=== PATIENT | male | born 1955 | race Caucasian/White ===

== ENCOUNTER 2017-11-18 12:48 | Day surgery (SDC) | payer BC ==
[2017-11-18] MEDS ORDERED: LIDOCAINE 2% MDV (20MG/ML) 20ML VIAL IV ONE (12:49)
[2017-11-18] MEDS ORDERED: PROPOFOL 10 MG/ML VIAL IV ONE (12:49)
[2017-11-18] MEDS ORDERED: FENTANYL PF 100MCG/2ML VIAL IV ONE (12:49)
[2017-11-18] MEDS ORDERED: MIDAZOLAM HCL 2MG/2ML VIAL IV ONE (12:49)
--- NOTE | 2017-11-19 12:50 | Operative Note ---
DATE OF SURGERY: 11/18/2017 OPERATION: COLONOSCOPY with cold snare polypectomy x2. PREOPERATIVE DIAGNOSIS: Colon cancer screening, average risk. POSTOPERATIVE DIAGNOSES: 1. Ascending colon polyp. 2. Transverse colon polyp. 3. Sigmoid diverticulosis. ESTIMATED BLOOD LOSS: Minimum. SPECIMENS: Ascending colon polyp, transverse colon polyp. PREPARATION QUALITY: Good. COMPLICATIONS: None apparent. PROCEDURE: After informed consent was obtained from the patient, he was placed in the left lateral decubitus position in the endoscopy suite, sedated and monitored by the department of anesthesia. Digital rectal exam was unremarkable. A well-lubricated [id number] colonoscope was inserted into the rectum and advanced to the cecum. Preparation quality was good. The cecum, appendiceal orifice, and ileocecal valve were unremarkable. In the ascending colon there was a 6 mm sessile polyp removed with a cold snare. Minimal bleeding was noted at the site. The polyp was retrieved without difficulty. The remainder of the ascending colon was unrevealing. In the transverse colon there was a 4 mm polyp removed with a cold snare. Minimal bleeding noted at the site. The polyp was retrieved. The remainder of the transverse colon and descending colon were unrevealing. The sigmoid colon demonstrated [id number] diverticular changes. The rectum was unremarkable in forward and in J-turn views. The endoscope was straightened, the rectal ampulla deflated, and the endoscope was removed. RECOMMENDATIONS: The patient should follow a high-fiber diet. He will require repeat exam in 3-5 years pending tissue histology. As always, thank you for allowing me to participate in the healthcare of your patients. CC: DO ASAD Brooks
== END 2017-11-18 14:22 | disposition home or self-care (01) ==
LOC: HOP 12:48
PROVIDERS: ATTEND Internal Medicine Gastroenterology
DX: Z12.11 Encounter for screening for malignant neoplasm of colon (principal); D12.2 Benign neoplasm of ascending colon; D12.3 Benign neoplasm of transverse colon; K57.30 Diverticulosis of large intestine without perforation or abscess without bleeding; I10 Essential (primary) hypertension; G47.33 Obstructive sleep apnea (adult) (pediatric)
CPT/HCPCS: 45385; 00811; J3010